=== PATIENT | male | born 1990 | race Caucasian/White ===

== ENCOUNTER 2019-01-22 22:15 | Emergency (ER) | payer OTHER ==
[~2019-01-22] VITALS: Ht 172.7 cm; Wt 70.5 kg
[2019-01-22] MEDS ORDERED: methylPREDNISolone INJ 125 MG/2 ML VIAL (J2930) IV ONE (23:15)
[2019-01-22] MEDS ORDERED: FAMOTIDINE IV BAG 20 MG in APPROPRIATE DILUENT 1 EA IV ONE (23:15)
[2019-01-22] MEDS ORDERED: diphenhydrAMINE INJ 50MG/ML VIAL (J1200) IV ONE (23:15)
[2019-01-23] MEDS ORDERED: PRED20TA PO (01:18)
[2019-01-23 01:40] VITALS: BP 116/71
== END 2019-01-23 01:42 | disposition home or self-care (01) ==
LOC: M ED 22:15
DX: T78.40XA Allergy, unspecified, initial encounter (principal); Y92.9 Unspecified place or not applicable; Y93.9 Activity, unspecified; Z72.0 Tobacco use; J30.89 Other allergic rhinitis; Z88.8 Allergy status to other drugs, medicaments and biological substances
CPT/HCPCS: 96361; 96374; 96375; 99284; J1200; J2930